=== PATIENT | female | born 1995 | race Caucasian/White ===

== ENCOUNTER 2017-12-05 08:40 | Emergency (ER) | payer SELFPAY ==
[~2017-12-05] VITALS: Ht 157.5 cm; Wt 49.0 kg
[2017-12-05 08:44] VITALS: BP 130/62; PULSE 110; RESP 16; TEMP 97.8; O2SAT 97
[2017-12-05 09:44] VITALS: BP 116/71; PULSE 91; RESP 16; O2SAT 100
[2017-12-05] MEDS ORDERED: SODIUM CHLORIDE 0.9% FLUSH 10 ML FLUSH IVF PRN (10:00)
--- NOTE | 2017-12-05 10:11 | PD ---
HPI Chief Complaint: GI Complaint Time Seen by Provider: 09:28 Travel History International Travel<30 days: No Contact w/Intl Traveler<30days: No Traveled to known affect area: No History of Present Illness HPI 22-year-old female presents with sore throat, chills and nonbloody emesis that started this morning at 6:30. She states that her boyfriend reported that when she was sleeping she was shaking and when he try to wake her up she was confused. Patient states she has history of seizures and has been off of her Keppra for a year. It is unknown if she had a seizure as her boyfriend is currently not here and patient does not recall event. Patient states she just finished her last menstrual cycle. She denies any other concurrent complaints. Quality is sharp. Location is throat. She denies specific modifying factors. She denies recurrent history of this. [facility] Past Medical History Immunizations Current: Yes Seizures: Yes ?: Not LMP: 11/21/2017 Past Surgical History Surgical History: No Previous Surgery Social History Alcohol Use: No Tobacco Use: No Substance Use: No Allergies-Medications (Allergen,Severity, Reaction): Coded Allergies: Penicillins (Verified Allergy, Severe, SWELLING/HIVES, 12/05/17) Reported Meds & Prescriptions Reported Meds & Active Scripts Active Keppra (Levetiracetam) 500 Mg Tab 500 Mg PO BID 30 Days Review of Systems Except as stated in HPI: all other systems reviewed are Neg Physical Exam Narrative GENERAL: 22-year-old female who is well-appearing SKIN: Focused skin assessment warm/dry. HEAD: Atraumatic. Normocephalic. EYES: Pupils equal and round. No scleral icterus. No injection or drainage. ENT: No nasal bleeding or discharge. Mucous membranes pink and moist. Posterior oropharynx without exudate or erythema, bilateral TMs clear NECK: Trachea midline. No JVD. No meningeal signs CARDIOVASCULAR: Regular rate and rhythm. RESPIRATORY: No accessory muscle use. Clear to auscultation. Breath sounds equal bilaterally. GASTROINTESTINAL: Abdomen soft, non-tender, nondistended. MUSCULOSKELETAL: No obvious deformities. No clubbing. No cyanosis. No edema. NEUROLOGICAL: Awake and alert. No obvious cranial nerve deficits. Motor grossly within normal limits. Normal speech. PSYCHIATRIC: Appropriate mood and affect; insight and judgment normal. Data Data Last Documented VS Vital Signs Date Time Temp Pulse Resp B/P (MAP) Pulse Ox O2 Delivery O2 Flow Rate FiO2 12/05/17 12:36 12/05/17 12:22 90 16 100 Room Air 12/05/17 08:44 97.8 Orders Orders Ed Urine Pregnancytest Poc (12/05/17 09:36) Group A Rapid Strep Screen (12/05/17 09:36) Complete Blood Count With Diff (12/05/17 09:46) Basic Metabolic Panel (Bmp) (12/05/17 09:46) Ct Brain W/O Iv Contrast(Rout) (12/05/17 ) Ecg Monitoring (12/05/17 09:46) Iv Access Insert/Monitor (12/05/17 09:46) Oximetry (12/05/17 09:46) Sodium Chloride 0.9% Flush (Ns Flush) (12/05/17 10:00) Strep Culture (Group A) (12/05/17 09:45) Sodium Chlor 0.9% 1000 Ml Inj (Ns 1000 M (12/05/17 10:30) Chest, Pa & Lat (12/05/17 ) Levetiracetam (Keppra) (12/05/17 12:30) Ed Discharge Order (12/05/17 12:28) Labs Laboratory Tests Test 12/05/17 10:35 White Blood Count 17.8 TH/MM3 Red Blood Count 4.80 MIL/MM3 Hemoglobin 13.9 GM/DL Hematocrit 40.6 % Mean Corpuscular Volume 84.5 FL Mean Corpuscular Hemoglobin 28.9 PG Mean Corpuscular Hemoglobin Concent 34.2 % Red Cell Distribution Width 14.3 % Platelet Count 348 TH/MM3 Mean Platelet Volume 8.0 FL Neutrophils (%) (Auto) 87.4 % Lymphocytes (%) (Auto) 5.0 % Monocytes (%) (Auto) 3.5 % Eosinophils (%) (Auto) 0.7 % Basophils (%) (Auto) 3.4 % Neutrophils # (Auto) 15.6 TH/MM3 Lymphocytes # (Auto) 0.9 TH/MM3 Monocytes # (Auto) 0.6 TH/MM3 Eosinophils # (Auto) 0.1 TH/MM3 Basophils # (Auto) 0.6 TH/MM3 CBC Comment AUTO DIFF Differential Comment AUTO DIFF CONFIRMED Blood Urea Nitrogen 13 MG/DL Creatinine 0.66 MG/DL Random Glucose 143 MG/DL Calcium Level 9.2 MG/DL Sodium Level 138 MEQ/L Potassium Level 3.5 MEQ/L Chloride Level 106 MEQ/L Carbon Dioxide Level 23.6 MEQ/L Anion Gap 8 MEQ/L Estimat Glomerular Filtration Rate 111 ML/MIN MDM Medical Decision Making Medical Screen Exam Complete: Yes Emergency Medical Condition: Yes Medical Record Reviewed: Yes (past history reviewed with nurse) Interpretation(s) CBC & BMP Diagram 12/05/17 10:35 Calcium Level 9.2 Last [address] 12/05/17 0000 Signed Impressions: Service Date/Time: Tuesday, December 05, 2017 10:57 - CONCLUSION: 1. No acute intracranial abnormality. West Frederick MD Differential Diagnosis Strep pharyngitis, URI, , electrolyte abnormality, seizure disorder Narrative Course Will check blood work, CT brain, test, strep test and reevaluate ED workup no emergent process other than mild leukocytosis. We'll discuss with neurology Episode she described was a possible seizure but given she has history of seizures we'll place her back on her Keppra to prevent further seizure and have her follow with her specialist. given first dose here, no seizure or emesis here , Patient denies any new complaints and states that they are feeling better. Patient happy with care, all questions answered. Patient knows that follow up is incumbent on them and to return to the emergency room immediately if new or worsening symptoms develop. Patient given strict return precautions, vitals reviewed and are normal, agrees to further workup as an outpatient. Physician Communication Physician Communication dr gill states to place back on keppra 500mg po bid and no driving and follow with her primary and neurologist Diagnosis Primary Impression: Sore throat Additional Impression: Seizure disorder Referrals: Neurologist call for appointment Primary Care Physician call for appointment friday Patient Instructions: General Instructions Additional Instructions: NO driving until cleared by neurology, return as needed, take your medication as prescribed, tylenol as needed Med/Other Pt SpecificInfo: Prescription(s) given Scripts Levetiracetam (Keppra) 500 Mg Tab 500 MG PO BID for Control Seizures for 30 Days, #60 TAB 0 Refills Prov: Haydee Chilel MD 12/05/17 Disposition: 01 DISCHARGE HOME Condition: Stable Haydee Chilel MD Dec 05, 2017 10:11
[2017-12-05] MEDS ORDERED: SODIUM CHLOR 0.9% 1000 ML INJ 1,000 ML IV ONE (10:30)
[2017-12-05 10:46] VITALS: RESP 16; O2SAT 100
[2017-12-05 10:47] LABS: HEMATOCRIT 40.6 % (35.0-46.0); HEMOGLOBIN 13.9 GM/DL (11.6-15.3); MEAN CELL VOLUME 84.5 FL (80.0-100.0); WHITE BLOOD COUNT 17.8 TH/MM3 (4.0-11.0)
[2017-12-05 10:48] LABS: AUTOMATED NEUTROPHIL # 15.6 TH/MM3 (1.8-7.7); BASOPHIL # 0.6 TH/MM3 (0-0.2); BASOPHIL % 3.4 % (0.0-2.0); EOSINOPHIL # 0.1 TH/MM3 (0-0.4); EOSINOPHIL % 0.7 % (0.0-4.0); LYMPHOCYTE # 0.9 TH/MM3 (1.0-4.8); MEAN CORPUSCULAR HEMOGLOBIN 28.9 PG (27.0-34.0); MEAN CORPUSCULAR HGB CONC 34.2 % (32.0-36.0); MONO % 3.5 % (0.0-8.0); MONOCYTE # 0.6 TH/MM3 (0-0.9); NEUT % 87.4 % (16.0-70.0); PLATELET COUNT 348 TH/MM3 (150-450); RED CELL DISTRIBUTION WIDTH 14.3 % (11.6-17.2)
[2017-12-05 10:55] LABS: CALCIUM 9.2 MG/DL (8.5-10.1)
[2017-12-05 10:56] LABS: BICARBONATE 23.6 MEQ/L (21.0-32.0)
[2017-12-05 10:59] LABS: CREATININE 0.66 MG/DL (0.50-1.00)
--- NOTE | 2017-12-05 11:17 | RADRPT ---
EXAM DATE/TIME: 12/05/2017 10:57 [facility] COMPARISON: No previous studies available for comparison. INDICATIONS : Altered mental status. Possible seizure. RADIATION DOSE: 56.88 CTDIvol (mGy) MEDICAL HISTORY : Seizures. SURGICAL HISTORY : None. ENCOUNTER: Initial ACUITY: 1 day PAIN SCALE: 0/10 LOCATION: cranial TECHNIQUE: Multiple contiguous axial images were obtained of the head. Using automated exposure control and adj ustment of the mA and/or kV according to patient size, radiation dose was kept as low as reasonably a chievable to obtain optimal diagnostic quality images. DICOM format image data is available electro nically for review and comparison. FINDINGS: CEREBRUM: The ventricles are normal for age. No evidence of midline shift, mass lesion, hemorrhage or acute in farction. No extra-axial fluid collections are seen. POSTERIOR FOSSA: The cerebellum and brainstem are intact. The 4th ventricle is midline. The cerebellopontine angle i s unremarkable. EXTRACRANIAL: The visualized portion of the orbits is intact. SKULL: The calvaria is intact. No evidence of skull fracture. CONCLUSION: 1. No acute intracranial abnormality. West Frederick MD on December 05, 2017 at 11:13 Board Certified Radiologist. This report was verified electronically.
--- NOTE | 2017-12-05 12:09 | RADRPT ---
EXAM DATE/TIME: 12/05/2017 11:31 [facility] COMPARISON: No previous studies available for comparison. INDICATIONS : Cough, nausea and vomitting. MEDICAL HISTORY : None. SURGICAL HISTORY : None. ENCOUNTER: Initial ACUITY: 2 days PAIN SCORE: 0/10 LOCATION: Bilateral chest FINDINGS: PA and lateral views of the chest demonstrate the lungs to be symmetrically aerated without evidence of mass, infiltrate or effusion. The cardiomediastinal contours are unremarkable. Osseous structure s are intact. CONCLUSION: No acute disease. Jean Marie Marie MD on December 05, 2017 at 12:07 Board Certified Radiologist. This report was verified electronically.
[2017-12-05 12:22] VITALS: BP 110/61; PULSE 90; RESP 16; O2SAT 100
[2017-12-05] MEDS ORDERED: LEVE500 PO (12:23)
[2017-12-05] MEDS ORDERED: levETIRAcetam 500 MG TAB PO ONE (12:30)
== END 2017-12-05 12:46 | disposition home or self-care (01) ==
LOC: PHED 08:40
DX: J02.9 Acute pharyngitis, unspecified (principal); G40.909 Epilepsy, unspecified, not intractable, without status epilepticus; R68.83 Chills (without fever); R11.10 Vomiting, unspecified; Z86.69 Personal history of other diseases of the nervous system and sense organs
CPT/HCPCS: 70450; 71046; 80048; 84703; 85025; 87081; 87880; 96360; 99284; J7030